=== PATIENT | male | born 1975 | race Caucasian/White ===

== ENCOUNTER → 2016-05-04 | Outpatient (CLI) | payer OTHER ==
--- NOTE | 2016-05-04 17:45 | DX ---
"Left shoulder - 3 views Indication: Fall. Pain. Comparison: None Findings: A subtle nondisplaced fracture involves the lesser tuberosity of the anterior aspect of the humeral head (best evident on the lateral axillary and externally rotated AP views). The greater tub erosity is intact. No surgical neck fracture. The acromioclavicular and coracoclavicular intervals ar e normal. Left lung apex is clear. Impression: 1. Acute nondisplaced fracture of the lesser tuberosity of the left humeral head. 2. No surgical neck fracture, dislocation or AC separation. A follow-up required test result has been communicated via the [employer] | Critical Result syst em on 05/04/2016 17:38, Message ID [id number]."
== END ==
LOC: FIMAGING 16:14
PROVIDERS: ATTEND Family Medicine
DX: S42.265A Nondisplaced fracture of lesser tuberosity of left humerus, initial encounter for closed fracture (principal); Y30.XXXA Falling, jumping or pushed from a high place, undetermined intent, initial encounter

== ENCOUNTER → 2016-05-11 | Outpatient (CLI) | payer OTHER | LOC: FIMAGING 10:03 | PROVIDERS: ATTEND Family Medicine | DX: S42.262A Displaced fracture of lesser tuberosity of left humerus, initial encounter for closed fracture (principal) ==

== ENCOUNTER → 2016-06-17 | Outpatient (CLI) | payer OTHER ==
[~2016-06-17] MED LIST: IOPAMIDOL (ISOVUE 370) 100 ML BTL IV ONE; LIDOCAINE 1% 30 ML SDV ONE; NA BICARBONATE 50 MEQ/50 ML VIAL ONE
== END ==
LOC: FIMAGING 12:58
PROVIDERS: ATTEND Orthopaedic Surgery
PROC: BP29YZZ Computerized Tomography (CT Scan) of Left Shoulder using Other Contrast (ICD-10-PCS; principal; 2016-06-17)
DX: M25.512 Pain in left shoulder (principal)
CPT/HCPCS: Q9967